=== PATIENT | male | born 1935 | race Two or more races ===

== ENCOUNTER 2018-12-30 09:28 | Emergency (ER) | payer MEDICARE ==
[~2018-12-30] VITALS: Ht 162.6 cm; Wt 72.6 kg
--- NOTE | 2018-12-30 09:30 | NUR ---
ED Nurse Note: ERMD at bedside.
[2018-12-30] MEDS ORDERED: Tetanus/Diptheria/Pertussis IM ONE (09:45)
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
[2018-12-30 09:48] VITALS: BP 157/65
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
--- NOTE | 2018-12-30 10:05 | NUR ---
ED Nurse Note: pt went down for CT scan in stable condition.
--- NOTE | 2018-12-30 10:25 | NUR ---
ED Nurse Note: pt came back from CT scan in stable condition.
--- NOTE | 2018-12-30 10:30 | NUR ---
ED Nurse Note: x-ray at bedside.
--- NOTE | 2018-12-30 11:05 | Diagnostic Imaging Report ---
Indication: Headache. Head injury Technique: Contiguous 5 mm thick transaxial imaging of the head obtained in a Siemens Sensation [address] scanner. Soft tissue and bone windows generated. Automatic Exposure Control was utilized. Total Dose length Product (DLP): 1810.[address] Dose Index Volume (CTDIvol): 70.38,28.19 mGy Comparison: none Findings: There is mild prominence of the ventricles, basal cisterns, and cerebral sulci consistent with atrophy. Mild, nonspecific, white matter hypoattenuation is noted throughout the brain consistent with chronic small vessel disease. There is no midline shift, edema, acute hemorrhage, mass effect, or abnormal extra-axial fluid collections. Bones are unremarkable. Impression: No acute intracranial bleed, mass effect or edema. Mild atrophy of the brain. Nonspecific white matter hypoattenuation probably due to chronic small vessel disease. The CT scanner at [facility] is accredited by the [employer] and the scans are performed using dose optimization techniques as appropriate to a performed exam including Automatic Exposure control.
--- NOTE | 2018-12-30 11:11 | Diagnostic Imaging Report ---
Indication: Orbital and maxillofacial trauma and pain Technique: Continuous helical transaxial imaging of the orbits/maxillofacial structures obtained without intravenous contrast administration. Coronal 2-D reformats were also obtained. Study obtained in a Siemens sensation [address] Automatic Exposure Control was utilized. Total Dose length Product (DLP): 1810.[address] Dose Index Volume (CTDIvol): 70.38,28.19 mGy Comparison: None Findings: There is no evidence of an acute fracture. There is mucosal thickening within the right maxillary sinus and ethmoid sinus consistent with sinusitis. Mastoids are clear bilaterally. There is degeneration of the TMJ bilaterally as well as the with osteoarthritis, left worse than right. There is calcification of the visualized internal carotid arteries. The orbits are negative for acute injury. The right lens is not visualized. IMPRESSION: No evidence of acute injury. Right maxillary/ethmoid sinusitis. Abnormal right globe with apparent absence or attenuation of the lens. This is likely an incidental finding. 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
--- NOTE | 2018-12-30 11:19 | Diagnostic Imaging Report ---
Indication: Cervical trauma/pain. Technique: Continuous helical imaging of the cervical spine was obtained transaxially from the skull base to the upper thoracic spine. 2-D coronal and sagittal reformatted images were obtained. Automatic Exposure Control was utilized. Total Dose length Product (DLP): 367.[address] Dose Index Volume (CTDIvol): 17.77 mGy Comparison: None Findings: There is no acute fracture or malalignment identified. There is no soft tissue swelling identified. Mild uncovertebral arthritis is demonstrated at multiple levels. Some of the intervertebral discs show narrowing and osteophytes. Impression: No acute injury Degenerative spondylosis The CT scanner at [facility] is accredited by the [employer] and the scans are performed using dose optimization techniques as appropriate to a performed exam including Automatic Exposure control.
--- NOTE | 2018-12-30 11:23 | Diagnostic Imaging Report ---
Indication: Elbow injury and pain Findings: 3 views of the right elbow were obtained. No acute fractures, malalignment, erosions or periostitis are identified. There is soft tissue irregularity along the posterior part of the elbow. There is no definite radiopaque foreign body identified.. Impression: Soft tissue injury. No foreign body identified
[2018-12-30] MEDS ORDERED: Lidocaine 1% 10mg/ml/Epi 0.005mg/ml 10ml vial INJ ONE (11:30)
--- NOTE | 2018-12-30 11:30 | NUR ---
ED Nurse Note: laceration tray set up at bedside per ERMD's verbal order. LUAND made aware.
--- NOTE | 2018-12-30 12:30 | NUR ---
ED Nurse Note: ERMD at bedside suturing the wound on Rt elbow.
--- NOTE | 2018-12-30 13:10 | NUR ---
ED Nurse Note: suture done by ERMD at bedside.
--- NOTE | 2018-12-30 13:21 | NUR ---
ED Nurse Note: per ERMD 17 stiches into muscle applied.
--- NOTE | 2018-12-30 13:28 | NUR ---
ED Nurse Note: the stiches site cleaned and BJ wrap applied per ERMD's verbal order.
[2018-12-30 13:40] VITALS: BP 142/82
--- NOTE | 2018-12-30 13:40 | NUR ---
ED Nurse Note: Pt cleared by health care Provider for discharge. Pt accompanied by spouse. DC instructions/prescription was given and explained to pt and verbalized understanding of teachings. Pt was told to follow up with PCP or come back here for stiche removal. pt and were told to remove betzaida wrap and dressing daily for s/s of infection and keep it dry. All medical deviecs such as ID band removed. Pt is AAO x4, ambulatory and left with all personal belongings.
== END 2018-12-30 13:40 | disposition home or self-care (01) ==
LOC: EDBD 09:28 → EMR 09:49
DX: S51.811A Laceration without foreign body of right forearm, initial encounter (principal); M54.2 Cervicalgia; J32.2 Chronic ethmoidal sinusitis; M19.91 Primary osteoarthritis, unspecified site; I70.90 Unspecified atherosclerosis; E11.9 Type 2 diabetes mellitus without complications; I10 Essential (primary) hypertension; Z90.49 Acquired absence of other specified parts of digestive tract; Z23 Encounter for immunization; R51 Headache; Y04.8XXA Assault by other bodily force, initial encounter
CPT/HCPCS: 70450; 70486; 72125; 90471; 90715; 99284